=== PATIENT | female | born 1940 | race Caucasian/White ===

== ENCOUNTER 2020-01-19 14:43 | Observation (INO) ==
[2020-01-19] MEDS ORDERED: FUROSEMIDE 100 MG/10 ML VIAL IV STA (15:14)
[2020-01-19 16:27] LABS: Albumin 3.6 G/DL (3.4-5.0); Bilirubin,Total 1.6 MG/DL (0.2-1.0); Calcium 8.5 MG/DL (8.5-10.1); Osmolality,Calculated 279.5 MOS/KG (273-304); Total Protein 7.5 G/DL (6.4-8.3)
[2020-01-19 17:08] LABS: Basophils % 0.7 % (0.0-0.8); Eosinophils # 0.2 10*3/uL (0.0-0.87); Hematocrit 34.2 VOL% (35.7-47.0); Hemoglobin 10.5 GM/DL (12.0-16.0); Immature Granulocytes % 0.2 %; Immature Granulocytes Absolute 0.01 #; Lymphocytes # 0.9 10*3/uL (1.4-4.0); Lymphocytes % 14.9 % (21.3-54.2); Mean Corpuscular HGB Conc 30.7 GM/DL (32-36); Mean Corpuscular Volume 102.1 FL (87-102); Mean Platelet Volume 10.5 FL (9.6-12.0); Monocytes % 13.6 % (1.7-12.7); Neutrophils % 66.6 % (38.7-73.9); Platelet Count 208 T/CUMM (130-400); Red Blood Count 3.35 MC/CUMM (3.8-5.5); Red Cell Distribution Width 15.5 % (9.3-17.3)
[2020-01-19] MEDS ORDERED: guaiFENesin/DM ER 600-30 MG TABLET PO PRN (17:40)
[2020-01-19] MEDS ORDERED: ACETAMINOPHEN 325 MG TABLET PO PRN (17:40)
[2020-01-19] MEDS ORDERED: BISACODYL 5 MG TABLET PO PRN (17:40)
[2020-01-19] MEDS ORDERED: DEXTROSE 50% 25 GM/50 ML VIAL IV PRN (17:40)
[2020-01-19] MEDS ORDERED: LACTULOSE 20 GM/30 ML UDCUP PO PRN (17:40)
[2020-01-19] MEDS ORDERED: SIMETHICONE CHEW 125 MG TABLET PO PRN (17:40)
[2020-01-19] MEDS ORDERED: ONDANSETRON 4 MG/2 ML VIAL IV PRN (17:40)
[2020-01-19] MEDS ORDERED: GLUCAGON 1 MG VIAL IM PRN (17:40)
[2020-01-19] MEDS ORDERED: ALUMINUM/MAGNES/SIMETH MAX STR 30 ML UDCUP PO PRN (17:40)
[2020-01-19] MEDS ORDERED: traZODone 50 MG TABLET PO PRN (17:40)
[2020-01-19] MEDS ORDERED: ZALEPLON 5 MG CAPSULE PO PRN (17:40)
[2020-01-19] MEDS: ALBUTEROL/IPRATROPIUM 3 ML NEB RESP TX SCH (20:12)
[2020-01-19 21:15] LABS: Apearance,Urine CLEAR (Clear); Bilirubin,Urine Negative (Negative); Blood, Urine Negative (Negative); Glucose,Urine (UA) Negative (Negative); Hyaline Casts,Urine 1 /LPF (0-3); Ketones,Urine Negative (Negative); Mucus,Urine Occasional /LPF (Occasional); Nitrite,Urine Negative (Negative); Protein,Urine Negative; RBC,Urine 1 /HPF (0-4); Urine Color Colorless (Yellow); Urine Specific Gravity 1.004 (1.001-1.035); Urine Urobilinogen < 2.0 EU/DL (0.2-1.0)
[2020-01-19] MEDS: CLINDAMYCIN INJ 600 MG in PREMIX 1 EACH IV SCH (21:30)
[2020-01-19] MEDS: POTASSIUM CHLORIDE 10 MEQ TABLET PO SCH (21:30)
[2020-01-19] MEDS: carvediloL 12.5 MG TABLET PO SCH (21:30)
[2020-01-19] MEDS: APIXABAN 5 MG TABLET PO SCH (21:30)
[2020-01-19] MEDS: DOCUSATE SODIUM 100 MG CAPSULE PO SCH (21:40)
[2020-01-20] MEDS: ALBUTEROL/IPRATROPIUM 3 ML NEB RESP TX SCH ×4 (00:14→19:14)
[2020-01-20] MEDS: CLINDAMYCIN INJ 600 MG in PREMIX 1 EACH IV SCH ×3 (04:30→22:21)
[2020-01-20] MEDS: LEVOTHYROXINE 50 MCG TABLET PO SCH (05:43)
[2020-01-20 06:11] LABS: Basophils % 0.8 % (0.0-0.8); Eosinophils # 0.2 10*3/uL (0.0-0.87); Eosinophils % 4.8 % (0.00-10.9); Hematocrit 32.4 VOL% (35.7-47.0); Hemoglobin 10.1 GM/DL (12.0-16.0); Immature Granulocytes % 0.2 %; Immature Granulocytes Absolute 0.01 #; Lymphocytes # 0.8 10*3/uL (1.4-4.0); Lymphocytes % 16.3 % (21.3-54.2); Mean Corpuscular HGB Conc 31.2 GM/DL (32-36); Mean Corpuscular Volume 103.2 FL (87-102); Mean Platelet Volume 10.9 FL (9.6-12.0); Monocytes % 18.3 % (1.7-12.7); Neutrophils % 59.6 % (38.7-73.9); Platelet Count 172 T/CUMM (130-400); Red Blood Count 3.14 MC/CUMM (3.8-5.5); Red Cell Distribution Width 15.5 % (9.3-17.3)
[2020-01-20 06:41] LABS: Albumin 3.2 G/DL (3.4-5.0); Bilirubin,Total 1.3 MG/DL (0.2-1.0); Calcium 8.3 MG/DL (8.5-10.1); Osmolality,Calculated 279.5 MOS/KG (273-304); Total Protein 7.1 G/DL (6.4-8.3)
[2020-01-20 06:45] LABS: Free T4 (Free Thyroxine) 1.14 NG/DL (0.76-1.46); Risk Ratio 2.41; Thyroid Stimulating Hormone 2.07 uIU/ml (0.358-3.74); VLDL CHOLESTEROL 11.8 MG/DL
[2020-01-20 06:46] LABS: Band Neutrophils 1 % (0-10); Eosinophils 7 % (0-10); Lymphocytes 20 % (20-55); Segmented Neutrophils 58 % (50-85); Total Cells Counted 100
[2020-01-20 06:47] LABS: Anisocytosis 1+; Platelet Estimate Normal
[2020-01-20] MEDS: SPIRONOLACTONE 25 MG TABLET PO SCH (09:48)
[2020-01-20] MEDS: FUROSEMIDE 40 MG/4 ML VIAL IV SCH ×2 (09:48→16:30)
[2020-01-20] MEDS: POTASSIUM CHLORIDE 10 MEQ TABLET PO SCH ×2 (09:48→22:22)
[2020-01-20] MEDS: ASPIRIN EC 81 MG TABLET PO SCH (09:48)
[2020-01-20] MEDS: APIXABAN 5 MG TABLET PO SCH ×2 (09:48→22:22)
[2020-01-20] MEDS: metOLazone 2.5 MG TABLET PO SCH (09:48)
[2020-01-20] MEDS: DOCUSATE SODIUM 100 MG CAPSULE PO SCH ×2 (09:49→22:22)
[2020-01-20] MEDS: LOSARTAN 25 MG TABLET PO SCH (09:49)
[2020-01-20] MEDS: PANTOPRAZOLE 40 MG TABLET PO SCH (09:49)
[2020-01-20] MEDS: carvediloL 12.5 MG TABLET PO SCH ×2 (09:58→22:22)
[2020-01-20] MEDS ORDERED: MAGNESIUM SULF RIDER 2 GM in PREMIX 1 EACH IV ONE (10:33)
[2020-01-20 11:34] LABS: ABG Base Excess 9.2 MMOL/L (-2.5-2.5); ABG HCO3 32.7 MMOL/L (20-26); ABG Oxygen Saturation 80.5 % (95-100); ABG PCO2 55.9 MM HG (35-48); ABG PH 7.412 (7.35-7.45); ABG PO2 46.2 MM HG (80-95); ABG TCO2 32.5 MMOL/L (23-27); Allen Test Positive; Pt O2 Delivery Device Room Air
[2020-01-21] MEDS: ALBUTEROL/IPRATROPIUM 3 ML NEB RESP TX SCH ×4 (00:29→19:38)
[2020-01-21] MEDS: CLINDAMYCIN INJ 600 MG in PREMIX 1 EACH IV SCH ×3 (05:37→20:46)
[2020-01-21] MEDS: LEVOTHYROXINE 50 MCG TABLET PO SCH (05:37)
[2020-01-21 05:39] LABS: Basophils % 0.5 % (0.0-0.8); Eosinophils # 0.3 10*3/uL (0.0-0.87); Eosinophils % 4.5 % (0.00-10.9); Hematocrit 31.3 VOL% (35.7-47.0); Hemoglobin 9.5 GM/DL (12.0-16.0); Immature Granulocytes % 0.3 %; Immature Granulocytes Absolute 0.02 #; Lymphocytes # 0.9 10*3/uL (1.4-4.0); Lymphocytes % 15.2 % (21.3-54.2); Mean Corpuscular HGB Conc 30.4 GM/DL (32-36); Mean Corpuscular Volume 103.3 FL (87-102); Mean Platelet Volume 10.9 FL (9.6-12.0); Monocytes % 15.2 % (1.7-12.7); Neutrophils % 64.3 % (38.7-73.9); Platelet Count 185 T/CUMM (130-400); Red Blood Count 3.03 MC/CUMM (3.8-5.5); Red Cell Distribution Width 15.2 % (9.3-17.3)
[2020-01-21 06:03] LABS: Calcium 8.4 MG/DL (8.5-10.1); Osmolality,Calculated 277.8 MOS/KG (273-304)
[2020-01-21 06:04] LABS: Albumin 2.9 G/DL (3.4-5.0); Bilirubin,Total 0.7 MG/DL (0.2-1.0); Calcium 8.5 MG/DL (8.5-10.1); Osmolality,Calculated 277.8 MOS/KG (273-304); Total Protein 6.8 G/DL (6.4-8.3)
[2020-01-21 07:47] LABS: Hepatitis B Surface Ag Quant 0.35 Index; Hepatitis B Surface Ag Result Negative (Negative); Hepatitis C Virus Ab Result Negative (Negative)
[2020-01-21 08:41] LABS: Folate 8.7 NG/ML (5.4-24.0)
[2020-01-21 08:46] LABS: % Iron Saturation 14.3 % (18-50); Ferritin 17.1 ng/ml (8-252)
[2020-01-21] MEDS: FUROSEMIDE 40 MG/4 ML VIAL IV SCH ×2 (08:46→16:16)
[2020-01-21] MEDS: APIXABAN 5 MG TABLET PO SCH ×2 (09:22→20:47)
[2020-01-21] MEDS: LOSARTAN 25 MG TABLET PO SCH (09:22)
[2020-01-21] MEDS: DOCUSATE SODIUM 100 MG CAPSULE PO SCH ×2 (09:22→20:47)
[2020-01-21] MEDS: POTASSIUM CHLORIDE 10 MEQ TABLET PO SCH ×2 (09:22→20:47)
[2020-01-21] MEDS: ASPIRIN EC 81 MG TABLET PO SCH (09:23)
[2020-01-21] MEDS: SPIRONOLACTONE 25 MG TABLET PO SCH (09:23)
[2020-01-21] MEDS: carvediloL 12.5 MG TABLET PO SCH ×2 (09:23→20:47)
[2020-01-21] MEDS: PANTOPRAZOLE 40 MG TABLET PO SCH (09:23)
[2020-01-21] MEDS: methylPREDNISolone SOD SUC 40 MG/1 ML VIAL IV SCH ×2 (09:59→16:29)
[2020-01-22] MEDS: methylPREDNISolone SOD SUC 40 MG/1 ML VIAL IV SCH ×2 (00:32→08:34)
[2020-01-22] MEDS: ALBUTEROL/IPRATROPIUM 3 ML NEB RESP TX SCH ×2 (02:00→07:17)
[2020-01-22] MEDS: CLINDAMYCIN INJ 600 MG in PREMIX 1 EACH IV SCH (03:37)
[2020-01-22] MEDS: LEVOTHYROXINE 50 MCG TABLET PO SCH (06:12)
[2020-01-22 07:22] LABS: Hematocrit 34.3 VOL% (35.7-47.0); Hemoglobin 10.2 GM/DL (12.0-16.0); Immature Granulocytes % 0.7 %; Immature Granulocytes Absolute 0.06 #; Lymphocytes # 0.3 10*3/uL (1.4-4.0); Mean Corpuscular HGB Conc 29.7 GM/DL (32-36); Mean Corpuscular Volume 105.5 FL (87-102); Mean Platelet Volume 10.8 FL (9.6-12.0); Monocytes % 3.3 % (1.7-12.7); Platelet Count 192 T/CUMM (130-400); Red Blood Count 3.25 MC/CUMM (3.8-5.5); Red Cell Distribution Width 14.8 % (9.3-17.3); White Blood Count 8.3 T/CUMM (4-12)
[2020-01-22 07:40] LABS: Band Neutrophils 3 % (0-10); Lymphocytes 4 % (20-55); Platelet Estimate Normal; Segmented Neutrophils 90 % (50-85); Total Cells Counted 100
[2020-01-22 07:41] LABS: Hypochromasia 2+
[2020-01-22 07:47] LABS: Bilirubin,Total 0.6 MG/DL (0.2-1.0); Calcium 8.3 MG/DL (8.5-10.1); Osmolality,Calculated 276.2 MOS/KG (273-304); Total Protein 7.4 G/DL (6.4-8.3)
[2020-01-22] MEDS: PANTOPRAZOLE 40 MG TABLET PO SCH (08:08)
[2020-01-22] MEDS: APIXABAN 5 MG TABLET PO SCH (08:08)
[2020-01-22] MEDS: metOLazone 2.5 MG TABLET PO SCH (08:08)
[2020-01-22] MEDS: FUROSEMIDE 40 MG/4 ML VIAL IV SCH (08:09)
[2020-01-22] MEDS: carvediloL 12.5 MG TABLET PO SCH (08:09)
[2020-01-22] MEDS: LOSARTAN 25 MG TABLET PO SCH (08:09)
[2020-01-22] MEDS: POTASSIUM CHLORIDE 10 MEQ TABLET PO SCH (08:09)
[2020-01-22] MEDS: SPIRONOLACTONE 25 MG TABLET PO SCH (08:09)
[2020-01-22] MEDS: DOCUSATE SODIUM 100 MG CAPSULE PO SCH ×2 (08:09→08:34)
[2020-01-22] MEDS: ASPIRIN EC 81 MG TABLET PO SCH (08:09)
[2020-01-22 08:16] VITALS: BP 94/55
[2020-01-22] MEDS ORDERED: FERROUS GLUCONATE 324 MG TABLET PO SCH (09:00)
== END 2020-01-22 10:58 | disposition home health service (06) ==
LOC: EDUNIT# → N.TELEN 14:43 → N.EDINP 14:43 → N.ED 14:43 → SUATTDRO 17:40 → N.TELEN 19:47
PROVIDERS: ADMIT Hospitalist; ATTEND Internal Medicine

== ENCOUNTER 2020-02-05 01:28 | Inpatient (IN) ==
[2020-02-05] MEDS ORDERED: ALBUTEROL/IPRATROPIUM 3 ML NEB RESP TX STA (02:03)
[2020-02-05] MEDS ORDERED: DILTIAZEM 50 MG/10 ML VIAL IV STA (02:03)
[2020-02-05] MEDS ORDERED: methylPREDNISolone SOD SUC 125 MG/2 ML VIAL IV STA (02:03)
[2020-02-05] MEDS ORDERED: ONDANSETRON 4 MG/2 ML VIAL IV STA (02:03)
[2020-02-05] MEDS ORDERED: FUROSEMIDE 40 MG/4 ML VIAL IV STA (02:03)
[2020-02-05 02:25] LABS: Bilirubin,Urine Negative (Negative); Blood, Urine Negative (Negative); Glucose,Urine (UA) Negative (Negative); Ketones,Urine Negative (Negative); Nitrite,Urine Negative (Negative); Protein,Urine Negative; RBC,Urine <1 /HPF (0-4); Urine Appearance CLEAR (Clear); Urine Color Colorless (Yellow); Urine Specific Gravity 1.008 (1.001-1.035); Urine Urobilinogen < 2.0 EU/DL (0.2-1.0)
[2020-02-05 02:27] LABS: Basophils % 0.2 % (0.0-0.8); Eosinophils # 0.1 10*3/uL (0.0-0.87); Eosinophils % 0.5 % (0.00-10.9); Hematocrit 36.6 VOL% (35.7-47.0); Hemoglobin 11.7 GM/DL (12.0-16.0); Immature Granulocytes % 0.5 %; Immature Granulocytes Absolute 0.09 #; Lymphocytes # 0.4 10*3/uL (1.4-4.0); Lymphocytes % 2.6 % (21.3-54.2); Mean Platelet Volume 10.6 FL (9.6-12.0); Monocytes % 3.6 % (1.7-12.7); Neutrophils % 92.6 % (38.7-73.9); Platelet Count 219 T/CUMM (130-400); Red Blood Count 3.66 MC/CUMM (3.8-5.5); Red Cell Distribution Width 15.7 % (9.3-17.3)
[2020-02-05 02:36] LABS: INR 1.1; PT Patient Result 12.2 SECS (9.8-11.9)
[2020-02-05 02:47] LABS: Band Neutrophils 2 % (0-10); Eosinophils 2 % (0-10); Lymphocytes 2 % (20-55); Macrocytosis Slight; Platelet Estimate Normal; Segmented Neutrophils 92 % (50-85); Total Cells Counted 100
[2020-02-05 02:49] LABS: Albumin 3.3 G/DL (3.4-5.0); Bilirubin,Total 0.5 MG/DL (0.2-1.0); Calcium 8.7 MG/DL (8.5-10.1); Osmolality,Calculated 280.8 MOS/KG (273-304); Total Protein 7.4 G/DL (6.4-8.3)
[2020-02-05] MEDS ORDERED: MAGNESIUM SULF RIDER 2 GM in PREMIX 1 EACH IV STA (03:03)
[2020-02-05] MEDS ORDERED: GLUCAGON 1 MG VIAL IM PRN (03:55)
[2020-02-05] MEDS ORDERED: guaiFENesin/DM ER 600-30 MG TABLET PO PRN (03:55)
[2020-02-05] MEDS ORDERED: ACETAMINOPHEN 325 MG TABLET PO PRN (03:55)
[2020-02-05] MEDS ORDERED: diphenhydrAMINE CAP 25 MG CAPSULE PO PRN (03:55)
[2020-02-05] MEDS ORDERED: ONDANSETRON 4 MG/2 ML VIAL IV PRN (03:55)
[2020-02-05] MEDS ORDERED: NICOTINE 21 MG/24 HR PATCH TRANSDERM PRN (03:55)
[2020-02-05] MEDS ORDERED: DEXTROSE 50% 25 GM/50 ML VIAL IV PRN (03:55)
[2020-02-05 04:11] LABS: Allen Test Positive
[2020-02-05 04:12] LABS: ABG Base Excess 3.7 MMOL/L (-2.5-2.5); ABG HCO3 30.1 MMOL/L (20-26); ABG Oxygen Saturation 95.8 % (95-100); ABG PCO2 54.3 MM HG (35-48); ABG PH 7.362 (7.35-7.45); ABG PO2 89.1 MM HG (80-95); ABG TCO2 31.8 MMOL/L (23-27)
[2020-02-05] MEDS: ALBUTEROL/IPRATROPIUM 3 ML NEB RESP TX SCH ×3 (07:29→19:31)
[2020-02-05] MEDS ORDERED: FUROSEMIDE 20 MG/2 ML VIAL IV SCH (09:00)
[2020-02-05] MEDS ORDERED: APIXABAN 5 MG TABLET PO SCH (09:00)
[2020-02-05] MEDS ORDERED: carvediloL 12.5 MG TABLET PO SCH (09:00)
[2020-02-05] MEDS: PANTOPRAZOLE 40 MG TABLET PO SCH (10:04)
[2020-02-05] MEDS: CETIRIZINE 10 MG TABLET PO SCH (10:04)
[2020-02-05] MEDS: ASPIRIN EC 81 MG TABLET PO SCH (10:04)
[2020-02-05] MEDS: FERROUS GLUCONATE 324 MG TABLET PO SCH (10:04)
[2020-02-05] MEDS: APIXABAN 2.5 MG TABLET PO SCH ×2 (10:04→21:41)
[2020-02-05] MEDS: LEVOTHYROXINE 50 MCG TABLET PO SCH (10:04)
[2020-02-05] MEDS: DOCUSATE SODIUM 100 MG CAPSULE PO SCH ×3 (10:05→21:49)
[2020-02-05] MEDS: methylPREDNISolone SOD SUC 40 MG/1 ML VIAL IV SCH ×2 (10:18→17:54)
[2020-02-05] MEDS: FUROSEMIDE 40 MG/4 ML VIAL IV SCH (17:48)
[2020-02-05] MEDS: METOPROLOL TARTRATE 25 MG TABLET PO SCH (21:41)
[2020-02-06] MEDS: ALBUTEROL/IPRATROPIUM 3 ML NEB RESP TX SCH ×4 (01:13→18:55)
[2020-02-06] MEDS: methylPREDNISolone SOD SUC 40 MG/1 ML VIAL IV SCH ×4 (03:23→17:34)
[2020-02-06] MEDS: FUROSEMIDE 40 MG/4 ML VIAL IV SCH ×2 (09:12→17:36)
[2020-02-06] MEDS: ASPIRIN EC 81 MG TABLET PO SCH (09:13)
[2020-02-06] MEDS: DOCUSATE SODIUM 100 MG CAPSULE PO SCH ×2 (09:13→21:20)
[2020-02-06] MEDS: PANTOPRAZOLE 40 MG TABLET PO SCH (09:13)
[2020-02-06] MEDS: APIXABAN 2.5 MG TABLET PO SCH ×2 (09:13→21:21)
[2020-02-06] MEDS: METOPROLOL TARTRATE 25 MG TABLET PO SCH ×2 (09:13→21:21)
[2020-02-06] MEDS: LEVOTHYROXINE 50 MCG TABLET PO SCH (09:13)
[2020-02-06] MEDS: FERROUS GLUCONATE 324 MG TABLET PO SCH (09:13)
[2020-02-06] MEDS: CETIRIZINE 10 MG TABLET PO SCH (09:14)
[2020-02-06] MEDS ORDERED: ALBUTEROL/IPRATROPIUM 3 ML NEB RESP TX ONE (18:35)
[2020-02-07] MEDS: ALBUTEROL/IPRATROPIUM 3 ML NEB RESP TX SCH ×4 (01:35→19:12)
[2020-02-07] MEDS: methylPREDNISolone SOD SUC 40 MG/1 ML VIAL IV SCH ×3 (02:44→17:30)
[2020-02-07 05:21] LABS: Basophils % 0.1 % (0.0-0.8); Hematocrit 35.3 VOL% (35.7-47.0); Hemoglobin 11.2 GM/DL (12.0-16.0); Immature Granulocytes % 0.7 %; Immature Granulocytes Absolute 0.13 #; Lymphocytes # 0.3 10*3/uL (1.4-4.0); Lymphocytes % 1.7 % (21.3-54.2); Mean Corpuscular HGB Conc 31.7 GM/DL (32-36); Mean Corpuscular Volume 99.7 FL (87-102); Mean Platelet Volume 10.9 FL (9.6-12.0); Monocytes % 5.5 % (1.7-12.7); Platelet Count 200 T/CUMM (130-400); Red Blood Count 3.54 MC/CUMM (3.8-5.5); Red Cell Distribution Width 15.7 % (9.3-17.3); White Blood Count 17.9 T/CUMM (4-12)
[2020-02-07 05:44] LABS: Calcium 8.3 MG/DL (8.5-10.1)
[2020-02-07 05:51] LABS: Lymphocytes 3 % (20-55); Platelet Estimate Normal; Segmented Neutrophils 91 % (50-85); Total Cells Counted 100
[2020-02-07] MEDS: FUROSEMIDE 40 MG/4 ML VIAL IV SCH ×2 (10:10→15:38)
[2020-02-07] MEDS: PANTOPRAZOLE 40 MG TABLET PO SCH (10:11)
[2020-02-07] MEDS: FERROUS GLUCONATE 324 MG TABLET PO SCH (10:11)
[2020-02-07] MEDS: METOPROLOL TARTRATE 25 MG TABLET PO SCH ×2 (10:11→20:39)
[2020-02-07] MEDS: ASPIRIN EC 81 MG TABLET PO SCH (10:11)
[2020-02-07] MEDS: APIXABAN 2.5 MG TABLET PO SCH ×2 (10:11→20:39)
[2020-02-07] MEDS: LEVOTHYROXINE 50 MCG TABLET PO SCH (10:11)
[2020-02-07] MEDS: CETIRIZINE 10 MG TABLET PO SCH (10:11)
[2020-02-07] MEDS: DOCUSATE SODIUM 100 MG CAPSULE PO SCH ×2 (10:12→20:40)
[2020-02-07] MEDS ORDERED: ALBUTEROL/IPRATROPIUM 3 ML NEB RESP TX ONE ×2 (12:52→18:42)
[2020-02-07] MEDS: MAGNESIUM OXIDE 400 MG TABLET PO SCH (20:39)
[2020-02-08] MEDS: methylPREDNISolone SOD SUC 40 MG/1 ML VIAL IV SCH ×3 (02:45→18:39)
[2020-02-08] MEDS: ALBUTEROL/IPRATROPIUM 3 ML NEB RESP TX SCH ×4 (05:37→19:20)
[2020-02-08 06:05] LABS: Hematocrit 36.5 VOL% (35.7-47.0); Hemoglobin 11.5 GM/DL (12.0-16.0); Immature Granulocytes % 0.4 %; Immature Granulocytes Absolute 0.05 #; Lymphocytes # 0.3 10*3/uL (1.4-4.0); Lymphocytes % 2.3 % (21.3-54.2); Mean Corpuscular HGB Conc 31.5 GM/DL (32-36); Mean Corpuscular Volume 98.9 FL (87-102); Mean Platelet Volume 11.5 FL (9.6-12.0); Monocytes % 4.9 % (1.7-12.7); Neutrophils % 92.4 % (38.7-73.9); Platelet Count 197 T/CUMM (130-400); Red Blood Count 3.69 MC/CUMM (3.8-5.5); Red Cell Distribution Width 15.5 % (9.3-17.3); White Blood Count 11.6 T/CUMM (4-12)
[2020-02-08 06:26] LABS: Calcium 8.4 MG/DL (8.5-10.1); Osmolality,Calculated 285.1 MOS/KG (273-304)
[2020-02-08 06:30] LABS: Hypochromasia 1+; Lymphocytes 5 % (20-55); Microcytosis 1+; Platelet Estimate Adequate; Segmented Neutrophils 87 % (50-85); Total Cells Counted 100
[2020-02-08] MEDS: ASPIRIN EC 81 MG TABLET PO SCH (09:24)
[2020-02-08] MEDS: APIXABAN 2.5 MG TABLET PO SCH ×2 (09:24→21:26)
[2020-02-08] MEDS: MAGNESIUM OXIDE 400 MG TABLET PO SCH ×2 (09:24→21:26)
[2020-02-08] MEDS: FERROUS GLUCONATE 324 MG TABLET PO SCH (09:25)
[2020-02-08] MEDS: LEVOTHYROXINE 50 MCG TABLET PO SCH (09:25)
[2020-02-08] MEDS: METOPROLOL TARTRATE 25 MG TABLET PO SCH ×2 (09:25→21:25)
[2020-02-08] MEDS: PANTOPRAZOLE 40 MG TABLET PO SCH (09:25)
[2020-02-08] MEDS: FUROSEMIDE 40 MG/4 ML VIAL IV SCH ×2 (09:25→16:45)
[2020-02-08] MEDS: CETIRIZINE 10 MG TABLET PO SCH (09:25)
[2020-02-08] MEDS: DOCUSATE SODIUM 100 MG CAPSULE PO SCH ×2 (09:27→21:26)
[2020-02-09] MEDS: ALBUTEROL/IPRATROPIUM 3 ML NEB RESP TX SCH ×3 (00:21→14:00)
[2020-02-09] MEDS: methylPREDNISolone SOD SUC 40 MG/1 ML VIAL IV SCH ×2 (02:42→09:51)
[2020-02-09 04:48] LABS: Hematocrit 37.2 VOL% (35.7-47.0); Immature Granulocytes % 0.9 %; Immature Granulocytes Absolute 0.08 #; Lymphocytes # 0.3 10*3/uL (1.4-4.0); Lymphocytes % 2.7 % (21.3-54.2); Mean Corpuscular HGB Conc 32.3 GM/DL (32-36); Mean Corpuscular Volume 98.7 FL (87-102); Mean Platelet Volume 11.3 FL (9.6-12.0); Monocytes % 6.5 % (1.7-12.7); Neutrophils % 89.9 % (38.7-73.9); Platelet Count 195 T/CUMM (130-400); Red Blood Count 3.77 MC/CUMM (3.8-5.5); White Blood Count 9.3 T/CUMM (4-12)
[2020-02-09 05:10] LABS: Calcium 8.5 MG/DL (8.5-10.1); Osmolality,Calculated 287.1 MOS/KG (273-304)
[2020-02-09 05:14] LABS: Lymphocytes 3 % (20-55); Platelet Estimate Normal; Segmented Neutrophils 94 % (50-85); Total Cells Counted 100
[2020-02-09] MEDS ORDERED: POTASSIUM CHLORIDE 20 MEQ TABLET PO PRN (06:58)
[2020-02-09] MEDS ORDERED: FUROSEMIDE 40 MG TABLET PO SCH (08:00)
[2020-02-09] MEDS: DOCUSATE SODIUM 100 MG CAPSULE PO SCH ×2 (08:27→08:31)
[2020-02-09] MEDS: MAGNESIUM OXIDE 400 MG TABLET PO SCH (08:27)
[2020-02-09] MEDS: LEVOTHYROXINE 50 MCG TABLET PO SCH (08:27)
[2020-02-09] MEDS: FERROUS GLUCONATE 324 MG TABLET PO SCH (08:27)
[2020-02-09] MEDS: ASPIRIN EC 81 MG TABLET PO SCH (08:27)
[2020-02-09] MEDS: CETIRIZINE 10 MG TABLET PO SCH (08:27)
[2020-02-09] MEDS: PANTOPRAZOLE 40 MG TABLET PO SCH (08:27)
[2020-02-09] MEDS: METOPROLOL TARTRATE 25 MG TABLET PO SCH (08:28)
[2020-02-09] MEDS: APIXABAN 2.5 MG TABLET PO SCH (08:28)
[2020-02-09 12:52] VITALS: BP 131/58
== END 2020-02-09 14:19 | disposition home health service (06) | DRG 291 ==
LOC: EDUNIT# → EDBD → N.ED 01:28 → SUATTDRO 03:55 → N.EDINP 03:55 → N.TELEN 05:54
PROVIDERS: ADMIT Internal Medicine; ATTEND Internal Medicine

== ENCOUNTER 2022-04-12 19:01 | Observation (INO) ==
[2022-04-12] MEDS ORDERED: FUROSEMIDE 100 MG/10 ML VIAL IV STA (19:45)
[2022-04-12] MEDS ORDERED: ALBUTEROL/IPRATROPIUM 3 ML NEB RESP TX STA (19:45)
[2022-04-12] MEDS ORDERED: ONDANSETRON 4 MG/2 ML VIAL IV STA (19:45)
[2022-04-12] MEDS ORDERED: methylPREDNISolone SOD SUC 125 MG/2 ML VIAL IV STA (19:45)
[2022-04-12 21:05] LABS: Bacteria,Urine Occasional /HPF (Few); Mucus,Urine Occasional /LPF (Occasional); RBC,Urine 1 /HPF (0-4); Squamous Epithelial Cell,Urine Occasional /HPF (0-10); Urine Appearance Clear (Clear); Urine Color Yellow (Yellow)
[2022-04-12 21:06] LABS: Bilirubin,Urine Small mg/dL (Negative); Blood, Urine Negative (Negative); Glucose,Urine (UA) Negative (Negative); Ketones,Urine 15 mg/dL (Negative); Nitrite,Urine Negative (Negative); Protein,Urine 100 mg/dL (Negative)
[2022-04-12 21:24] LABS: INR 1.2; PT Patient Result 13.2 SECS (10.1-12.1)
[2022-04-12 21:35] LABS: Albumin 2.6 G/DL (3.4-5.0); Bilirubin,Total 1.1 MG/DL (0.20-1.00); Calcium 8.2 MG/DL (8.5-10.1); Osmolality,Calculated 277.5 MOS/KG (273-304); Total Protein 6.4 G/DL (6.4-8.2)
[2022-04-12] MEDS ORDERED: MAGNESIUM SULF RIDER 2 GM/50 ML PREMIX IV STA (21:41)
[2022-04-12 21:52] LABS: Basophils % 0.1 % (0.0-0.8); Eosinophils % 0.3 % (0.00-10.9); Hematocrit 36.3 VOL% (35.7-47.0); Hemoglobin 11.6 GM/DL (12.0-16.0); Immature Granulocytes % 0.1 %; Immature Granulocytes Absolute 0.01 #; Lymphocytes # 0.9 10*3/uL (1.4-4.0); Lymphocytes % 13.4 % (21.3-54.2); Mean Platelet Volume 10.3 FL (9.6-12.0); Monocytes # 1.1 10*3/uL (0.11-0.8); Monocytes % 15.6 % (1.7-12.7); Neutrophils % 70.5 % (38.7-73.9); Platelet Count 192 T/CUMM (130-400); Red Blood Count 3.63 MC/CUMM (3.8-5.5); Red Cell Distribution Width 13.5 % (9.3-17.3); White Blood Count 6.8 T/CUMM (4-12)
[2022-04-12 22:34] LABS: Lymphocytes 17 % (20-55); Platelet Estimate Adequate; Total Cells Counted 100
[2022-04-13] MEDS ORDERED: diphenhydrAMINE CAP 25 MG CAPSULE PO PRN (01:03)
[2022-04-13] MEDS ORDERED: PROMETHAZINE 25 MG/1 ML VIAL IM PRN (01:03)
[2022-04-13] MEDS ORDERED: guaiFENesin/DM ER 600-30 MG TABLET PO PRN (01:03)
[2022-04-13] MEDS ORDERED: ACETAMINOPHEN 325 MG TABLET PO PRN (01:03)
[2022-04-13] MEDS ORDERED: hydrALAZINE 20 MG/1 ML VIAL IV PRN (01:03)
[2022-04-13] MEDS ORDERED: ONDANSETRON 4 MG/2 ML VIAL IV PRN (01:03)
[2022-04-13] MEDS ORDERED: ZALEPLON 5 MG CAPSULE PO PRN (01:03)
[2022-04-13] MEDS: SODIUM CHLORIDE 0.9% 1,000 ML IV SCH (03:05)
[2022-04-13 05:10] LABS: Hematocrit 37.5 VOL% (35.7-47.0); Immature Granulocytes % 0.5 %; Immature Granulocytes Absolute 0.03 #; Lymphocytes # 0.3 10*3/uL (1.4-4.0); Mean Platelet Volume 10.4 FL (9.6-12.0); Monocytes # 0.2 10*3/uL (0.11-0.8); Monocytes % 3.2 % (1.7-12.7); Neutrophils % 90.3 % (38.7-73.9); Platelet Count 215 T/CUMM (130-400); Red Blood Count 3.75 MC/CUMM (3.8-5.5); Red Cell Distribution Width 13.5 % (9.3-17.3); White Blood Count 5.7 T/CUMM (4-12)
[2022-04-13 05:26] LABS: Calcium 8.5 MG/DL (8.5-10.1); Osmolality,Calculated 278.7 MOS/KG (273-304)
[2022-04-13] MEDS: ALBUTEROL/IPRATROPIUM 3 ML NEB RESP TX SCH ×4 (07:10→23:45)
[2022-04-13] MEDS: CHOLECALCIFEROL 1,000 UNIT TABLET PO SCH (08:14)
[2022-04-13] MEDS: FUROSEMIDE 40 MG TABLET PO SCH ×2 (08:14→17:04)
[2022-04-13] MEDS: PANTOPRAZOLE 40 MG TABLET PO SCH (08:14)
[2022-04-13] MEDS: ASPIRIN EC 81 MG TABLET PO SCH (08:14)
[2022-04-13] MEDS: DOCUSATE SODIUM 100 MG CAPSULE PO SCH ×2 (08:14→21:27)
[2022-04-13] MEDS: carvediloL 12.5 MG TABLET PO SCH ×2 (08:15→21:26)
[2022-04-13] MEDS: SPIRONOLACTONE 25 MG TABLET PO SCH (08:15)
[2022-04-13] MEDS: APIXABAN 2.5 MG TABLET PO SCH ×2 (08:15→21:26)
[2022-04-13] MEDS: LEVOTHYROXINE 75 MCG TABLET PO SCH (08:15)
[2022-04-13] MEDS ORDERED: ENOXAPARIN 40 MG/0.4 ML SYRINGE SUBCUT SCH (09:00)
[2022-04-13] MEDS: methylPREDNISolone SOD SUC 40 MG/1 ML VIAL IV SCH (17:05)
[2022-04-14] MEDS: methylPREDNISolone SOD SUC 40 MG/1 ML VIAL IV SCH ×2 (00:53→08:15)
[2022-04-14] MEDS ORDERED: ALBUTEROL 2.5 MG/3 ML NEB RESP TX ONE ×4 (05:23→13:19)
[2022-04-14] MEDS ORDERED: IPRATROPIUM 500 MCG/2.5 ML NEB RESP TX ONE ×3 (05:23→13:19)
[2022-04-14 05:28] LABS: Hemoglobin 11.4 GM/DL (12.0-16.0); Immature Granulocytes % 0.3 %; Immature Granulocytes Absolute 0.03 #; Lymphocytes # 0.5 10*3/uL (1.4-4.0); Lymphocytes % 4.7 % (21.3-54.2); Mean Corpuscular HGB Conc 30.8 GM/DL (32-36); Mean Corpuscular Volume 101.6 FL (87-102); Mean Platelet Volume 10.9 FL (9.6-12.0); Monocytes # 0.5 10*3/uL (0.11-0.8); Platelet Count 245 T/CUMM (130-400); Red Blood Count 3.64 MC/CUMM (3.8-5.5); Red Cell Distribution Width 13.4 % (9.3-17.3); White Blood Count 9.9 T/CUMM (4-12)
[2022-04-14 05:46] LABS: Calcium 8.5 MG/DL (8.5-10.1); Osmolality,Calculated 277.1 MOS/KG (273-304); Potassium 4.1 MMOL/L (3.5-5.1)
[2022-04-14 06:50] LABS: Lymphocytes 4 % (20-55); Platelet Estimate Adequate; Total Cells Counted 100
[2022-04-14] MEDS: LEVOTHYROXINE 75 MCG TABLET PO SCH (07:27)
[2022-04-14] MEDS: SODIUM CHLORIDE 0.9% 1,000 ML IV SCH ×2 (08:13→10:49)
[2022-04-14] MEDS: carvediloL 12.5 MG TABLET PO SCH (08:15)
[2022-04-14] MEDS: FUROSEMIDE 40 MG TABLET PO SCH (08:16)
[2022-04-14] MEDS: APIXABAN 2.5 MG TABLET PO SCH (08:16)
[2022-04-14] MEDS: CHOLECALCIFEROL 1,000 UNIT TABLET PO SCH (08:16)
[2022-04-14] MEDS: DOCUSATE SODIUM 100 MG CAPSULE PO SCH (08:16)
[2022-04-14] MEDS: SPIRONOLACTONE 25 MG TABLET PO SCH (08:16)
[2022-04-14] MEDS: PANTOPRAZOLE 40 MG TABLET PO SCH (08:16)
[2022-04-14] MEDS: ASPIRIN EC 81 MG TABLET PO SCH (08:16)
[2022-04-14] MEDS: ALBUTEROL/IPRATROPIUM 3 ML NEB RESP TX SCH (09:08)
[2022-04-14 11:50] VITALS: BP 109/56
== END 2022-04-14 14:51 | disposition home or self-care (01) ==
LOC: EDUNIT# → EDBD → N.ED 19:01 → N.EDINP 19:01 → SUATTDRO 04-13 01:03 → N.5E 04-13 03:05
PROVIDERS: ADMIT Internal Medicine; ATTEND Internal Medicine